=== PATIENT | female | born 1970 | race Caucasian/White ===

== ENCOUNTER 2020-06-10 14:33 | Outpatient (CLI) | payer OTHER, SELFPAY ==
[2020-06-10 14:54] LABS: Hematocrit 40.4 % (35.0-49.0); Hemoglobin 13.1 g/dL (12.0-15.0); Mean Corpuscular HGB Conc 32.4 g/dL (32.0-36.0); Mean Corpuscular Hemoglobin 29.2 pg (27.0-31.0); Mean Platelet Volume 8.4 fl (9.2-11.8); Platelet Count Result 282 K/mm3 (150-420); Red Blood Count 4.49 M/mm3 (4.20-5.40); Red Cell Distribution Width 13.6 % (11.6-14.4); White Blood Count 7.4 K/mm3 (4.8-10.8)
[2020-06-10 15:19] LABS: Alanine Aminotransferase 57 U/L (14-59); Albumin Level 4.2 g/dL (3.4-5.0); Alkaline Phosphatase 67 U/L (46-116); Anion Gap 10 mmol/L (8-16); Aspartate Amino Transferase 27 U/L (15-37); Bilirubin,Total 0.4 mg/dL (0.00-1.00); Blood Urea Nitrogen 12 mg/dL (7-18); Calcium 9.8 mg/dL (8.5-10.1); Carbon Dioxide 28 mmol/L (21-32); Chloride 103 mmol/L (98-108); Cholesterol 209 mg/dL (0-200); Estimated Glomerular Filt Rate > 60; Glucose 99 mg/dL (70-99); HDL Direct 65 mg/dL (40-60); LDL Cholesterol Calculated 119 mg/dL (<130); Osmolality Calculated 291 mOsm/kg (285-295); Sodium 141 mmol/L (136-145); Total Protein 7.4 g/dL (6.4-8.2); Triglycerides 127 mg/dL (0-150)
== END 2020-06-10 14:34 | disposition home or self-care (01) ==
LOC: CHSLAB 14:37
PROVIDERS: PCP Family Medicine; Visit Provider Family Medicine
DX: I10 Essential (primary) hypertension (principal)
CPT/HCPCS: 36415; 80053; 80061; 85027

== ENCOUNTER 2022-01-01 11:21 | Outpatient (CLI) | payer OTHER, SELFPAY ==
[2022-01-01 11:35] LABS: Mean Corpuscular HGB Conc 32.5 g/dL (32.0-36.0); Mean Corpuscular Hemoglobin 29.2 pg (27.0-31.0); Mean Corpuscular Volume 89.9 fL (78.0-102.0); Mean Platelet Volume 8.4 fl (9.2-11.8); Platelet Count Result 280 K/mm3 (150-420); Red Blood Count 4.45 M/mm3 (4.20-5.40); White Blood Count 6.8 K/mm3 (4.8-10.8)
[2022-01-01 12:02] LABS: Alanine Aminotransferase 33 U/L (14-59); Albumin Level 3.8 g/dL (3.4-5.0); Alkaline Phosphatase 66 U/L (46-116); Anion Gap 7 mmol/L (8-16); Aspartate Amino Transferase 19 U/L (15-37); Bilirubin,Total 0.4 mg/dL (0.00-1.00); Blood Urea Nitrogen 11 mg/dL (7-18); Calcium 9.3 mg/dL (8.5-10.1); Carbon Dioxide 30 mmol/L (21-32); Chloride 102 mmol/L (98-108); Cholesterol 199 mg/dL (0-200); Estimated Glomerular Filt Rate > 60; Glucose 100 mg/dL (70-99); HDL Direct 66 mg/dL (40-60); LDL Cholesterol Calculated 114 mg/dL (<130); Osmolality Calculated 287 mOsm/kg (285-295); Potassium 3.8 mmol/L (3.5-5.1); Sodium 139 mmol/L (136-145); Total Protein 7.2 g/dL (6.4-8.2); Triglycerides 97 mg/dL (0-150)
[2022-01-01 12:10] LABS: Thyroid Stimulating Hormone Reflex 2.32 u/IU/mL (0.36-3.74)
== END 2022-01-01 11:22 | disposition home or self-care (01) ==
LOC: CHSLAB 11:26
PROVIDERS: PCP Family Medicine; Visit Provider Family Medicine
DX: E11.9 Type 2 diabetes mellitus without complications (principal); I10 Essential (primary) hypertension
CPT/HCPCS: 36415; 80053; 80061; 84443; 85027

== ENCOUNTER 2023-02-12 09:51 | Outpatient (CLI) | payer OTHER, SELFPAY ==
[2023-02-12 10:11] LABS: Basophils Absolute Auto 0.07 K/mm3 (0.00-0.10); Eosinophils Absolute Auto 0.19 K/mm3 (0.02-0.50); Eosinophils Percent Auto 2.6 % (1.0-6.0); Hematocrit 40.3 % (35.0-49.0); Immature Granulocyte Absolute 0.02 K/mm3 (0.00-0.00); Immature Granulocyte Percent A 0.3 % (0.0-0.0); Lymphocytes Absolute Auto 1.59 K/mm3 (1.10-4.50); Lymphocytes Percent Auto 21.7 % (18.0-42.0); Mean Corpuscular HGB Conc 32.3 g/dL (32.0-36.0); Mean Platelet Volume 8.4 fl (9.2-11.8); Monocytes Absolute Auto 0.49 K/mm3 (0.10-0.90); Monocytes Percent Auto 6.7 % (2.0-11.0); Neutrophils Percent Auto 67.7 % (50.0-70.0); Platelet Count Result 295 K/mm3 (150-420); Red Blood Count 4.48 M/mm3 (4.20-5.40); Red Cell Distribution Width 13.5 % (11.6-14.4); White Blood Count 7.3 K/mm3 (4.8-10.8)
[2023-02-12 10:35] LABS: Alanine Aminotransferase 21 U/L (14-59); Albumin Level 3.8 g/dL (3.4-5.0); Alkaline Phosphatase 69 U/L (46-116); Anion Gap 9 mmol/L (8-16); Aspartate Amino Transferase 18 U/L (15-37); Bilirubin,Total 0.4 mg/dL (0.00-1.00); Blood Urea Nitrogen 20 mg/dL (7-18); Calcium 9.4 mg/dL (8.5-10.1); Carbon Dioxide 30 mmol/L (21-32); Chloride 104 mmol/L (98-108); Cholesterol 188 mg/dL (0-200); Estimated Glomerular Filt Rate > 60; Glucose 106 mg/dL (70-99); HDL Direct 70 mg/dL (40-60); LDL Cholesterol Calculated 112 mg/dL (<130); Osmolality Calculated 298 mOsm/kg (285-295); Potassium 4.2 mmol/L (3.5-5.1); Sodium 143 mmol/L (136-145); Total Protein 6.8 g/dL (6.4-8.2); Triglycerides 32 mg/dL (0-150)
[2023-02-12 11:03] LABS: Thyroid Stimulating Hormone Reflex 2.34 u/IU/mL (0.36-3.74)
== END 2023-02-12 09:52 | disposition home or self-care (01) ==
LOC: CHSLAB 09:53
PROVIDERS: PCP Family Medicine; Visit Provider Family Medicine
DX: E11.9 Type 2 diabetes mellitus without complications (principal); I10 Essential (primary) hypertension
CPT/HCPCS: 36415; 80053; 80061; 84443; 85025

== ENCOUNTER 2024-02-23 11:12 | Outpatient (CLI) | payer OTHER, SELFPAY ==
[2024-02-23 11:24] LABS: Basophils Absolute Auto 0.06 K/mm3 (0.00-0.10); Basophils Percent Auto 0.9 % (0.0-1.0); Eosinophils Absolute Auto 0.18 K/mm3 (0.02-0.50); Eosinophils Percent Auto 2.7 % (1.0-6.0); Hemoglobin 13.4 g/dL (12.0-15.0); Immature Granulocyte Absolute 0.03 K/mm3 (0.00-0.00); Immature Granulocyte Percent A 0.5 % (0.0-0.0); Lymphocytes Absolute Auto 2.02 K/mm3 (1.10-4.50); Lymphocytes Percent Auto 30.7 % (18.0-42.0); Mean Corpuscular HGB Conc 32.7 g/dL (32-36); Mean Corpuscular Hemoglobin 28.9 pg (27.0-31.0); Mean Corpuscular Volume 88.6 fL (78.0-102.0); Mean Platelet Volume 8.3 fl (9.2-11.8); Monocytes Percent Auto 6.1 % (2.0-11.0); Neutrophils Absolute Auto 3.88 K/mm3 (1.70-7.20); Neutrophils Percent Auto 59.1 % (50.0-70.0); Platelet Count Result 287 K/mm3 (150-420); Red Blood Count 4.63 M/mm3 (4.20-5.40); Red Cell Distribution Width 13.5 % (11.6-14.4); White Blood Count 6.6 K/mm3 (4.8-10.8)
[2024-02-23 12:17] LABS: Alanine Aminotransferase 30 U/L (14-59); Albumin Level 4.1 g/dL (3.4-5.0); Alkaline Phosphatase 70 U/L (46-116); Anion Gap 10 mmol/L (4-12); Aspartate Amino Transferase 23 U/L (15-37); Bilirubin,Total 0.4 mg/dL (0.00-1.00); Blood Urea Nitrogen 13 mg/dL (7-18); Calcium 9.7 mg/dL (8.5-10.1); Carbon Dioxide 30 mmol/L (21-32); Chloride 101 mmol/L (98-108); Cholesterol 219 mg/dL (0-200); Estimated Glomerular Filt Rate > 60; Glucose 104 mg/dL (70-99); HDL Direct 72 mg/dL (40-60); LDL Cholesterol Calculated 133 mg/dL (<130); Osmolality Calculated 292 mOsm/kg (285-295); Sodium 141 mmol/L (136-145); Triglycerides 72 mg/dL (0-150)
[2024-02-23 12:21] LABS: Thyroid Stimulating Hormone Reflex 1.81 u/IU/mL (0.36-3.74)
== END 2024-02-23 11:13 | disposition home or self-care (01) ==
LOC: CHSLAB 11:15
PROVIDERS: PCP Family Medicine; Visit Provider Family Medicine
DX: E03.9 Hypothyroidism, unspecified (principal); I10 Essential (primary) hypertension
CPT/HCPCS: 36415; 80053; 80061; 84443; 85025

== ENCOUNTER 2025-01-15 08:22 | Day surgery (SDC) | payer OTHER, SELFPAY ==
--- OUTSIDE RECORDS SUMMARY | 2025-01-15 08:33 | XMS_ITS ---
Author Organization Unknown Medications Medication Instructions Effective Dates (start - sto p) Status lisinopril 20 MG Oral Tablet [id number] 0:00:00Z - Completed lisinopril 20 MG Oral Tablet [id number] 0:00:00Z - Completed lisinopril 20 MG Oral Tablet [id number] 0:00:00Z - Completed ciclopirox 80 MG/ML Topical Solution - Completed lisinopril 20 MG Oral Tablet [id number] 0:00:00Z - Completed ciclopirox 80 MG/ML Topical Solution - Completed clobetasol propionate 0.0005 MG/MG Topical Ointment - Completed fluoxetine 10 MG Oral Capsule 2023-08-04 00:00:00Z - Completed lisinopril 20 MG Oral Tablet [id number] 0:00:00Z - Completed fluoxetine 10 MG Oral Capsule 2023-02-08 00:00:00Z - Completed fluoxetine 10 MG Oral Capsule 2023-05-10 00:00:00Z - Completed Patient Care team information Name Category Status Period Participants - - Proposed period not known -
--- OUTSIDE RECORDS SUMMARY | 2025-01-15 08:33 | XMS_ITS | Data Portability ---
Author Organization [facility], [address] [facility] ([place]) Address [address] [address] Care Team Providers Care Sail Cutter Name Role Phone ARABELLA HANLEY Milk Hauler BIBIANA YA Milk Hauler GIORGIO PITTMAN Primary Care Provider Assessment Encounter Date Assessment Date Assessment LastModified by Organization Details LastModified Time 11/16/2024 11/16/2024 Will have pt RTC when she is due for annual or sooner if any issues. All of her questions were answered. [email or web address] Not available 11/23/2024 20:51:21 Plan of Treatment Reminders Order Date Submit Date Provider Last Modified By Organization Details Last Modified Time Details Appointments Imagi ng 5.PRO 2025 10:15A M Radiology Not available Not available Not available Ashly Gagnon Woman Visit 15.ES T 2025 10:45A M Arabella Hanley Not available Not available Not available Lab wet mount , vagin al 2024 025 [email or web address] [facility], [address] [place] [address], [id number], 11/16/2024 12:48:37 urina lysis , compl ete 2024 025 ARMAAN [facility], [facility] [place] [address], [id number], 11/16/2024 17:22:10 cultu re + sensi tivit y, urine 2024 025 ARMAAN [facility], [facility] [place] [address], [id number], 11/17/2024 16:26:36 TSH, serum or plasm a 2024 025 ARMAAN [facility], [facility] [place] [address], [id number], 10/31/2024 17:37:41 CMP, serum or plasm a 2024 025 ARMAAN [facility], [address] [place] [address], [id number], 10/31/2024 18:18:54 Pap test, slide (s), cervi vero 2023 024 twindell [facility], [address] [place] [address], [id number], 12/27/2023 13:57:27 Referral None recor ded. Procedures None recor ded. Surgeries None recor ded. Imaging MAMMO , omkar catalan al, bilat eral 2024 025 [facility], [address] [place] [address], [id number], 10/31/2024 13:46:41 MAMMO , omkar catalan al, bilat eral 2023 025 ARMAAN [facility], [address] [place] [address], [id number], 10/31/2024 11:04:38 Medication Orders Myrbe triq 25 mg table t,ext ended relea se 2024 025 leonides [facility], [address] [place], [address], 10/31/2024 17:00:27 Patient TargetsNo targets recorded. Patient Instructions Encounter Date Encounter Id Patient Instructions Last Modified By Organization Details Last Modified Time 10/29/2023 [id number] Pedro appears to be doing well from a gynecology standpoint at this time. A pap was collected today. She will be notified with results once available. An order for a screening mammogram was provided today. Results from her bone density and mammogram which were both completed today were reviewed with her in office. We will plan to repeat her bone density at age 63 unless additional risk factors develop in the meantime. We will plan to see her back in 1 year for annual exam and as needed in the meantime. She will contact the office with questions and concerns in the interim. [email or web address] Not available 10/29/2023 15:49:20 10/31/2024 [id number] For further evaluation of the spotting she had a couple of weeks ago, Pedro will return to the office for ultrasound. For her weight gain a TSH was ordered. A metabolic panel was also ordered for evaluation of kidney function prior to starting a medication for overactive bladder. A low dose of Myrbetriq was sent to her pharmacy. We can follow up on this when she returns for pelvic ultrasound. The role and potential benefit of pelvic floor physical therapy was also reviewed. If she decides that she would like to try this, Pedro was encouraged to let us know and we can look for a location closer to where she lives. We discussed that the overactive bladder medications may have a positive impact on her menopausal symptoms. We also reviewed OTC and prescription options for management. Due to her history of DVT, she is not a candidate for estrogen. She does take a low dose of fluoxetine and we discussed that we may be able to increase it. However, it may negatively impact her libido. Veozah, clonidine, and gabapentin were also discussed. I would prefer not to use gabapentin due to the need for mutiple daily doses and threat of weight gain. She plans to start with OTC options and will let us know if she would like to consider any of the prescription options discussed today. An order for a screening mammogram was placed today for next year. We will plan to see her back in 1 year for an annual exam and sooner for ultrasound. She will contact the office with questions and concerns in the interim. [email or web address] Not available 11/01/2024 11:35:37 11/16/2024 [id number] Pt was counseled about her TVUS. Her endometrial lining is very thin. Due to this, did not recommend performing endometrial biopsy at this time. She reports having a small amount of spotting, but denies any significant bleeding like a period. Recommended checking for any vaginal infections, which could cause spotting. Also recommended checking for a UTI. Pt was counseled to monitor for any signs of repetitive heavy bleeding. If this were to occur, would recommend thorough evaluation with HSC/D&C. [email or web address] Not available 11/23/2024 20:51:51 Reason for Referral None Reported. Results Created Date Observation Date Name Description Value Unit Range Abnormal Flag Note LastModifiedBy Organization Detail LastModifiedTime 11/01/1910/31/2024 TSH, serum or plasm a TSH; reflex to free T4 Not Available [facility] [address] [place] [address], [id number], 10/31/2024 17:37:41 11/01/1910/31/2024 TSH, serum or plasm a TSH3 1.741 uIU/m L .340-5 .600 Not Available [facility] [address] [place] [address], 6[address], 10/31/2024 17:37:41 11/01/1910/31/2024 CMP, serum or plasm a comp. met. panel Not Available [facility] [address] [place] [address], 522[address], 10/31/2024 18:18:54 11/01/1910/31/2024 CMP, serum or plasm a sodium 141 mmol/ L 136-14 6 Not Available [facility] [address] [place] [address], 04[address], 10/31/2024 18:18:54 11/01/1910/31/2024 CMP, serum or plasm a potassium 4.4 mmol/ L 3.5-5. 1 Not Available [facility] [address] [place] [address], [id number], 10/31/2024 18:18:54 11/01/19 25 10/31/2024 CMP, serum or plasm a chloride 105 mmol/ L 98-110 Not Available [facility] [address] [place] [address], 080[address], 10/31/2024 18:18:54 11/01/19 25 10/31/2024 CMP, serum or plasm a CO2 28 mEq/L 20-32 Not Available [facility] [address] [place] [address], 20977, 10/31/2024 18:18:54 11/01/1910/31/2024 CMP, serum or plasm a anion gap 12 mmol/ L 10-22 Not Available [facility] [address] [place] [address], 640[address], 10/31/2024 18:18:54 11/01/1910/31/2024 CMP, serum or plasm a glucose 103 mg/dL 70-100 high Not Available [facility] [address] [place] [address], 21594, 10/31/2024 18:18:54 11/01/1910/31/2024 CMP, serum or plasm a calcium 9.6 mg/dL 8.4-10 .4 Not Available [facility] [address] [place] [address], 325[address], 10/31/2024 18:18:54 11/01/1910/31/2024 CMP, serum or plasm a total protein 6.7 g/dL 6.4-8. 3 Not Available [facility] [address] [place] [address], 86323, 10/31/2024 18:18:54 11/01/1910/31/2024 CMP, serum or plasm a albumin 4.6 g/dL 3.5-5. 3 Not Available [facility] [address] [place] [address], 40283, 10/31/2024 18:18:54 11/01/19 25 10/31/2024 CMP, serum or plasm a ALP 68 U/L 44 - 127 Not Available [facility] [address] [place] [address], 39347, 10/31/2024 18:18:54 11/01/19 25 10/31/2024 CMP, serum or plasm a AST (SGOT) 24 U/L 10-40 Not Available [facility] [address] [place] [address], 35267, 10/31/2024 18:18:54 11/01/19 25 10/31/2024 CMP, serum or plasm a total bilirubin 0.4 mg/dL 0.2-1. 2 Not Available [facility] - [facility] [address] [place] [address], 62178, 10/31/2024 18:18:54 11/01/19 25 10/31/2024 CMP, serum or plasm a ALT (SGPT) 20 U/L 8-35 Not Available [facility] [address] [place] [address], 31657, 10/31/2024 18:18:54 11/01/1910/31/2024 CMP, serum or plasm a BUN 12 mg/dL 7-21 Not Available [facility] [address] [place] [address], 76341, 10/31/2024 18:18:54 11/01/1910/31/2024 CMP, serum or plasm a creatinine 0.9 mg/dL 0.7-1. 3 Not Available [facility] [address] [place] [address], 89755, 10/31/2024 18:18:54 11/01/1910/31/2024 CMP, serum or plasm a CKD-epi GFR 75 eGFR was calcu lated using the 2020 CKD-E PI equat ion. (Agricultural Lender bere Kidne y Disea se has an eGFR less than 60 mL/mi n/1.7 3mm for a perio d of three month s or more. ) This calcu latio n has not been valid ated for patie nt ages <18 or >90 years old. Not Available [facility] [address] [place] [address], 30843, 10/31/2024 18:18:54 11/17/19 25 11/16/2024 wet mount , vagin al wet prep Not Available [facility] [address] [place] [address], 48003, 11/16/2024 11:25:07 11/17/19 25 11/16/2024 wet mount , vagin al yeast NONE SEEN none seen Not Available [facility] [address] [place] [address], 76140, 11/16/2024 11:25:07 11/17/19 25 11/16/2024 wet mount , vagin al WBC MODERA TE none seen abnormal Not Available [facility] [address] [place] [address], 42570, 11/16/2024 11:25:07 11/17/19 25 11/16/2024 wet mount , vagin al clue cells POSITI VE negati ve abnormal Clue Cell Inter preta tion: Posit elijah Resul t = >20% Clue Cells Seen Negat elijah Resul t = <20% Clue Cells Seen Not Available [facility] [address] [place] [address], 52092, 11/16/2024 11:25:07 11/17/19 25 11/16/2024 wet mount , vagin al trichomonas NONE SEEN none seen Not Available [facility] [address] [place] [address], 83889, 11/16/2024 11:25:07 11/17/19 25 11/16/2024 wet mount , vagin al source VAG Not Available [facility] [address] [place] [address], 14378, 11/16/2024 11:25:07 11/17/19 25 11/16/2024 hemog lobin A1c + avera ge gluco se, QN, blood hemoglobin A1C Not Available [facility] [address] [place] [address], 65585, 11/16/2024 15:33:24 11/17/19 25 11/16/2024 hemog lobin A1c + avera ge gluco se, QN, blood HGB A1C 6.0 %_A1C 4.3 - 5.6 high Not Available [facility] [address] [place] [address], 88730, 11/16/2024 15:33:24 11/17/19 25 11/16/2024 hemog lobin A1c + avera ge gluco se, QN, blood estimated average glucose 126 mg/dL Not Available [facility] [address] [place] [address], 70929, 11/16/2024 15:33:24 11/17/19 25 11/16/2024 urina lysis , compl ete urinalysis, complete LOW LEVEL S OF HEMOG LOBIN IN ABSEN CE OF HEMAT URIA MAY NOT BE CLINI GALO SIGNI RONNIEAN T. Not Available [facility] [address] [place] [address], 09601, 11/16/2024 17:22:10 11/17/19 25 11/16/2024 urina lysis , compl ete color YELLOW Not Available [facility] [address] [place] [address], 15423, 11/16/2024 17:22:10 11/17/19 25 11/16/2024 urina lysis , compl ete clarity CLEAR Not Available [facility] [address] [place] [address], 86904, 11/16/2024 17:22:10 11/17/19 25 11/16/2024 urina lysis , compl ete pH 6.5 5.0-7. 5 Not Available [facility] [address] [place] [address], 68585, 11/16/2024 17:22:10 11/17/19 25 11/16/2024 urina lysis , compl ete specific gravity 1.009 1.000- 1.030 Not Available [facility] [address] [place] [address], 58500, 11/16/2024 17:22:10 11/17/19 25 11/16/2024 urina lysis , compl ete blood NEGATI VE negati ve Not Available [facility] [address] [place] [address], 56578, 11/16/2024 17:22:10 11/17/19 25 11/16/2024 urina lysis , compl ete bilirubin NEGATI VE negati ve Not Available [facility] [address] [place] [address], 07293, 11/16/2024 17:22:10 11/17/19 25 11/16/2024 urina lysis , compl ete urobilinogen 0.2 0.2-1. 0 Not Available [facility] [address] [place] [address], 66625, 11/16/2024 17:22:10 11/17/19 25 11/16/2024 urina lysis , compl ete ketone NEGATI VE negati ve Not Available [facility] [address] [place] [address], 19013, 11/16/2024 17:22:10 11/17/19 25 11/16/2024 urina lysis , compl ete glucose NEGATI VE negati ve Not Available [facility] [address] [place] [address], 03102, 11/16/2024 17:22:10 11/17/19 25 11/16/2024 urina lysis , compl ete protein NEGATI VE negati ve Not Available [facility] [address] [place] [address], 12361, 11/16/2024 17:22:10 11/17/19 25 11/16/2024 urina lysis , compl ete nitrite NEGATI VE negati ve Not Available [facility] [address] [place] [address], 27635, 11/16/2024 17:22:10 11/17/19 25 11/16/2024 urina lysis , compl ete leukocytes 1+ negati ve abnormal Not Available [facility] [address] [place] [address], 75673, 11/16/2024 17:22:10 11/17/19 25 11/16/2024 urina lysis , compl ete review * Micro scopi c resul ts revie wed by [facility]. Not Available [facility] [address] [place] [address], 77311, 11/16/2024 17:22:10 11/17/19 25 11/16/2024 urina lysis , compl ete RBC. NONE SEEN Not Available [facility] [address] [place] [address], 32078, 11/16/2024 17:22:10 11/17/19 25 11/16/2024 urina lysis , compl ete WBC 0-5 0-5/hp f Not Available [facility] [address] [place] [address], 47967, 11/16/2024 17:22:10 11/17/19 25 11/16/2024 urina lysis , compl ete squamous epithelial 0-2 0-10/h pf Not Available [facility] [address] [place] [address], 00533, 11/16/2024 17:22:10 11/17/19 25 11/16/2024 urina lysis , compl ete bacteria NONE SEEN none Not Available [facility] [address] [place] [address], 70493, 11/16/2024 17:22:10 11/17/19 25 11/16/2024 urina lysis , compl ete hyaline cast 0-2 0-2/lp f Not Available [facility] [address] [place] [address], 62805, 11/16/2024 17:22:10 11/17/19 25 11/18/2024 cultu re + sensi tivit y, urine urine culture and sens. MIKKI L URINE After overn ight incub ation 40,00 0 CFU/m l Mixed uroge nital barney , 3 or more colon y types indic ative of conta minat ion. No addit ional growt h after two night s incub ation . Not Available [facility] [address] [place] [address], 65599, 11/18/2024 10:04:27 11/17/19 25 11/17/2024 cultu re + sensi tivit y, urine urine culture and sens. PREL IM URINE After overn ight incub ation 40,00 0 CFU/m l Mixed uroge nital barney , 3 or more colon y types indic ative of conta minat ion. Not Available [facility] [address] [place] [address], 30365, 11/17/2024 16:26:36 10/29/19 24 10/29/[address] [address] Teleph one [phone] Name: PEDRO BARRAZA [id number] am Date: 2023 Age: 53Phys ician: OSTERM KWESI, LICENSED CHEMICAL SPRAY TECHNICIAN, LINDSE Y : 1969Ex aminat ion: BONE DENSIT Y EXAMIN ATION: BONE DENSIT Y PATIEN T PROVID ED HISTOR Y: Postme nopaus al for screen ing. COMPAR MONE: None FINDIN GS: AP lumbar spine T-scor e is -0.6 Left Hip Total Hip T-scor e is 0.6 Femora l Neck T-scor e is 0.9 IMPRES MIN: Normal . Please see PACS for full comput er genera daksha report . Additi onal Clinic al Inform ation: Bone minera l densit y: Normal (T-sco re above or = -1.0) Low bone mass (T-sco re betwee n -1.0 and -2.5) replac es the previo usly used term osteop enia Osteop orosis (T-sco re = or below -2.5) Medica l evalua tion for second erwin causes of low bone minera l densit y may be approp riate. FRAX is a World Health Organi zation valida daksha fractu re risk assess ment tool that calcul ates a person 's 10 year probab ility of a major osteop orosis relate d fractu re and hip fractu re. Accord ing to the Nation al Osteop orosis Founda tion guidel flaquita postme darius al women and men age 50 or older with low bone mass and a 10 year probab ility of a major osteop orosis relate d fractu re = or greate r than 20% or a 10 year probab ility of a hip fractu re = or greate r than 3% should be consid ered for treatm ent. For furthe r inform ation, includ ing treatm ent recomm endati ons, please refer to the 2019 ISCD Offici al Positi ons (http: //www. iscd.o rg) and the [facility] radha's Guide to Preven tion and Treatm ent of Osteop orosis (http: //www. nof.or g/prof ession als/cl inical -guide lines) Electr onical ly signed in Dave cribe by: Brandon Sun MD on:10/28 1:14 PM cc: Page PAGE 1 of NUMJOLENE MELA 1 leonides [facility] [address] , [place], [address], 10/29/2023 15:27:46 10/29/19 24 10/29/2023 MAMMO katerine, digit al, bilat [place]l [facility] [address] [place] [address] Teleph one [phone] Name: PEDRO BARRAZA [id number] am Date: 2023 Age: 53Phys ician: OSTERM EIER, LICENSED CHEMICAL SPRAY TECHNICIAN, LINDSE Y : 1969Ex aminat ion: MAMM BILATE RAL DIGITA L SCREEN ING EXAM: MAMM BILATE RAL DIGITA L SCREEN ING, MAMM SCREEN ING TOMOSY NTHESI S ACCESS ION: [id number], [id number] EXAM DATE: 10/29/19 1:15 PM HISTOR Y: Screen ing. COMPAR MONE: Prior studie s dating back to 019. DENSIT Y: The breast s are hetero geneou sly dense, which may obscur e small masses . FINDIN GS: 2D digita l compos ite views as well as 3D digita l tomosy nthesi s views were perfor med. There are no suspic ious masses , calcif icatio ns, or areas of mechelle ectura l distor tion. IMPRES MIN: There is no mammog raphic eviden ce of malign tani. ASSESS MENT: BI-RAD S 1: Negati ve. RECOMM ENDATI ON: 1. Screen ing Mammog lisa Bilate ral in 1 year. COMMEN TS: The patien t will be entere d into an automa daksha remind er system for a screen ing mammog lisa in 1 year. The patien t has been or will be contac daksha with the result s of this exam. Electr onical ly signed in Dave cribe by: Brandon Sun MD on:10/28 1:26 PM cc: Page PAGE 1 of [address] 1 leonides [facility] [address] [place] [address], [id number], 10/29/2023 15:27:46 11/01/19 25 10/31/2024 MAMMO katerine, digit al, bilat eral [facility] [address] [place] [address] Teleph one Name: PEDRO BARRAZA [id number] am Date: 2024 Age: 54Phys ician: JELANI ALEXANDREER, LICENSED CHEMICAL SPRAY TECHNICIAN, LINDSE Y : 1969Ex aminat ion: MAMM BILATE RAL DIGITA L SCREEN ING EXAM: MAMM BILATE RAL DIGITA L SCREEN ING, MAMM SCREEN ING TOMOSY NTHESI S ACCESS ION: [id number], [id number] EXAM DATE: 11/01/19 10:00 AM HISTOR Y: Screen ing. COMPAR MONE: Prior studie s dating back to 10/02/19 21. DENSIT Y: The breast s are hetero geneou sly dense, which may obscur e small masses . FINDIN GS: 2D digita l compos ite views as well as 3D digita l tomosy nthesi s views were perfor med. There are no suspic ious masses , calcif icatio ns, or other findin gs within either breast . There has been no signif icant interv al change . IMPRES MIN: There is no mammog raphic eviden ce of malign tani. ASSESS MENT: BI-RAD S 1: Negati ve. RECOMM ENDATI ON: 1. Screen ing Mammog lisa bilate ral in 1 year COMMEN TS: The patien t will be entere d into an automa daksha remind er system for a screen ing mammog lisa in 1 year. The patien t has been or will be contac daksha with the result s of this exam. Electr onical ly signed in Dave cribe by: MICHELLE SRIVASTAVA MD on:10/31 10:01 AM cc: Page PAGE 1 of NUMPAG ES 1 [email or web address] [facility] [address], [place], [address], 10/31/2024 13:35:25 11/18/19 25 11/16/2024 US, trans vagin [facility] [address] [address] Teleph one [phone] Name: Pedro Barraza [id number] Exam Date: 2024 Age: 54 Physic radha: Arsalan Monroy : 1969 Examin ation: US PELVIC NON-OB TRANSV AGINAL INDICA TION: 54-yea r-old female , postme nopaus al bleedi ng Transv aginal images of the pelvis are obtain ed today. The uterus is in the anteve rted positi on, measur ing 6.51 x 3.95 x 2.38 cm. The endome trial thickn ess is 1.18 mm. The right ovary measur es 2.64 x 2.21 x 2.05 cm. There is a simple appear ing cyst in the right ovary that measur es 2.46 x 1.91 x 1.94 cm. Blood flow seen to the right ovary. The left ovary was not visual ized. The cul-de -sac contai ns no free fluid. IMPRES MIN: 2.46 simple cyst in the right ovary, otherw ise normal transv aginal ultras ound Electr onical ly signed in Dvae cribe by: Arsalan mendoza MD on:10/27 4:21 PM cc: Page PAGE 1 of [facility] 1 INTERFACE [facility] [place] [address], [address], 11/17/2024 17:24:52 Result Notes Documentation Provider Name and Address Organization Details Recorded Time Mammo, Screening, Digital, Bilateral : [address] [address] Name: PEDRO NAGEL Date: 10/29/2023 Age: 53Physician: JAYLENE HANLEY LINDSEY : 1970Examination: MAMM BILATERAL DIGITAL SCREENING EXAM: MAMM BILATERAL DIGITAL SCREENING, MAMM SCREENING TOMOSYNTHESIS [id number] EXAM DATE: 10/29/2023 1:15 PM HISTORY: Screening. COMPARISON: Prior studies dating back to 10/05/2018. DENSITY: The breasts are heterogeneously dense, which may obscure small masses. FINDINGS: 2D digital composite views as well as 3D digital tomosynthesis views were performed. There are no suspicious masses, calcifications, or areas of architectural distortion. IMPRESSION: There is no mammographic evidence of malignancy. ASSESSMENT: BI-RADS 1: Negative. RECOMMENDATION: 1. Screening Mammogram Bilateral in 1 year. COMMENTS: The patient will be entered into an automated reminder system for a screening mammogram in 1 year. The patient has been or will be contacted with the results of this exam. Electronically signed in [employer] by: Daryn Sun MD on:10/29/2023 1:26 PM cc: Page PAGE 1 of NUMCallMD 1 Arabella Hanley, ENVIRONMENTAL ASSOCIATE, ALUMNI COORDINATOR [address], [phone], [facility] 10/29/2023 15:27:46 Mammo, Screening, Digital, Bilateral : [address] [address] Name: PEDRO NAGEL Date: 10/31/2024 Age: 54Physician: JAYLENE HANLEY, ARABELLA : 1970Examination: MAMM BILATERAL DIGITAL SCREENING EXAM: MAMM BILATERAL DIGITAL SCREENING, MAMM SCREENING TOMOSYNTHESIS [id number] EXAM DATE: 10/31/2024 10:00 AM HISTORY: Screening. COMPARISON: Prior studies dating back to 10/01/2020. DENSITY: The breasts are heterogeneously dense, which may obscure small masses. FINDINGS: 2D digital composite views as well as 3D digital tomosynthesis views were performed. There are no suspicious masses, calcifications, or other findings within either breast. There has been no significant interval change. IMPRESSION: There is no mammographic evidence of malignancy. ASSESSMENT: BI-RADS 1: Negative. RECOMMENDATION: 1. Screening Mammogram bilateral in 1 year COMMENTS: The patient will be entered into an automated reminder system for a screening mammogram in 1 year. The patient has been or will be contacted with the results of this exam. Electronically signed in [employer] by: MICHELLE HAQUE MD on:10/31/2024 10:01 AM cc: Page PAGE 1 of NUMCallMD 1 Arabella Hanley APRN, ALUMNI COORDINATOR [address] [place] [address], [phone], [facility] 10/31/2024 13:35:26 Problems Name Problem SNOMED Code Status Onset Date Resolution Date Notes Provider Name and Address Organization Details Recorded Time Menopausal flushing 132819789 Active [address] 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 4 15:20:16 Hypertensive disorder 70979704 Active [address] [facility] 4 15:20:47 Gynecologic examination Active [address] [facility] 4 19:18:22 Screening mammography Active [address] [facility] 4 19:18:32 Menopausal symptom [id number] Active [address] [facility] 5 12:04:39 Postmenopausal bleeding 81714475 Active [address] [facility] 5 16:59:21 Urgent desire to urinate 93536930 Active [address] [facility] 5 16:01:36 Glucose level above reference range 29394746 Active [address] [facility] 5 10:15:31 Bacterial vaginosis 613334012 Active [address] [facility] 5 13:07:58 Problem Notes None recorded. Procedures Surgical History Date Name Laterality Status Provider Name and Address Organization Details Recorded Time 6 pelvic sling completed [facility] 10/22/2023 19:14:54 Oral surgery procedure completed [facility] 10/22/2023 19:15:13 operative procedure on knee completed [facility] 10/22/2023 19:15:42 Imaging Results None recorded. Procedure Notes None recorded. Medical Equipment None Reported. Allergies No known drug allergies Medications Name Sig Start Date Stop Date Status Note LastModified by Organization Details LastModified Time lisinopri l 20 mg tablet Take 1 tablet every day by oral route. 2023 active Unsure last refill date not document ed in [employer] Not Available Not Available Not Available metronida zole 500 mg tablet Take 1 tablet twice a day by oral route for 7 days. 11/30 completed Not Available Not Available Not Available ciclopiro x 8 % topical solution active Not Available Not Available Not Available fluoxetin e 10 mg capsule Take 1 capsule every day by oral route. 2024 active Last refilled 10/27/19 23 Not Available Not Available Not Available Myrbetriq 25 mg tablet,ex tended release Take 1 tablet every day by oral route. 2024 active Not Available Not Available Not Avai lable Vitals Date Recorded Body height Body mass index (BMI) Body weight Systolic And Diastolic Provider Name and Address Organization Details Last Updated DateTime 10/29/2023 168.91 cm 35.4 kg/m2 100021.94 g 132/74 mm[Hg] [facility] 10/29/2023 14:39:30 Date Recorded Body height Body mass index (BMI) Body weight Systolic And Diastolic Provider Name and Address Organization Details Last Updated DateTime 10/31/2024 167.64 cm 36.6 kg/m2 117544.47 g 136/80 mm[Hg] [facility] 10/31/2024 11:17:43 Date Recorded Body height Respiratory rate Systolic And Diastolic Provider Name and Address Organization Details Last Updated DateTime 11/16/2024 167.64 cm 16 /min 146/84 mm[Hg] Xuan De León [facility] 11/16/2024 10:55:54 Social History Question Answer Notes LastModified by Organizat ion Details LastModified Time Tobacco Smoking Status Never Smoker Not Available Health Note 10/29/2024 20:13:21 Do You Have An Advance Directive? Yes [email or web address] Information not available 10/29/2024 What Is Your Level Of Caffeine Consumption? Moderate [email or web address] Information not available 10/29/2024 What Is Your Code Status? DNR [email or web address] Information not available 10/29/2024 How Many Times Per Week Do You Exercise? 3-4 Times Per Week [email or web address] Information not available 10/29/2024 What Was The Date Of Your Most Recent Tobacco Screening? 10/31/2024 [email or web address] Information not available 10/29/2024 What Is Your Relationship Status? [email or web address] Information not available 10/29/2024 Sex: Unknown Functional Status Question Answer Note LastModified by Organizat ion Details LastModified Time How many times per week do you consume alcohol? Less than 1 time per week [email or web address] Information not available 10/29/2024 Do you use any illicit or recreational drugs? No [email or web address] Information not available 10/29/2024 Do you or have you ever used any other forms of tobacco or nicotine? No [email or web address] Information not available 10/29/2024 What is your level of alcohol consumption? Occasional [email or web address] Information not available 10/29/2024 Are you currently employed? 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 Moderate [email or web address] Information not available 10/29/2024 Mental Status None recorded. Family History Relationship Description Onset Age of this Age Resolved Age Notes LastModified by Organization Details LastModified Time Brother Colonic adhesions twindell Not available 2023 19:08:52 Brother Polyp of colon twindell Not available 2023 19:11:35 Brother Asthma [email or web address] Not available 0 10/29/2024 20:13:20 Maternal Grandfather Malignant tumor of colon 40 unsure of detail s [email or web address] Not available 10/29/2023 15:08:04 Mother Polyp of colon twindell Not available 2023 19:11:35 Mother Hypertensive disorder twindell Not available 2023 19:12:08 Mother Multiple myeloma twindell Not available 2023 19:12:22 Mother Mitral valve prolapse twindell Not available 2023 19:12:51 Mother Pulmonary embolism twindell Not available 2023 19:13:03 Mother Asthma [email or web address] Not available 20:13:20 Mother Heart disease [email or web address] Not available 2024 20:13:20 Mother Disorder of thyroid gland [email or web address] Not available 2024 20:13:20 Father Dementia twindell Not available 10/22/2023 19:11:53 Father Parkinson's disease twindell Not available 2023 19:12:38 Paternal Grandmother Alzheimer's disease [email or web address] Not available 2024 20:13:20 Maternal Grandmother Diabetes mellitus [email or web address] Not available 2024 20:13:20 Notes:Patient saw genetics i n 2016, no testing needed Medical History Condition Response High Blood Pressure Y COPD N Depression N Anxiety Disorder N Arthritis N Cancer N Stroke N Fibromyalgia N Kidney Disease N Bleeding Disorder N Asthma N Seizures N Attention-deficit Hyperactivity Disorder N Thyroid Problems N Anemia N Diabetes N Hyperlipidemia N Heart Disease N Osteoporosis N Gynecological HistoryNo gynecological history recorded. Obstetrics History GPAL:G 3 P 2 0 0 2 Type Value Full Term 2 Living 2 Total 3 Past Encounters Encounter ID Performer Location Encounter Start Date Encounter Closed Date Diagnosis/Indication Diagnosis SNOMED-CT Code Diagnosis ICD10 Code Diagnosis Note [id number] Arabella Hanley APRN, K[facility]) [address] [place] [phone] 10/29/2023 14:19:13 10/29/2023 15:26:58 Screening mammography of bilateral breasts 8932478293 87574 Z12.31 Gynecologi c examination 58480124 Z01.419 [id number] Arabella Hanley APRN, ALUMNI COORDINATOR [facility] [place] [address] [facility] [address] [place] [address] 10/31/2024 10:59:50 10/31/2024 12:24:22 Breast neoplasm screening status 219297208 Z12.31 Menopausal symptom 85590 002 N95.1 Postmenopa usal bleeding 45851088 N95.0 Urgent lamont roshan to urinate 05576481 R39.15 Gynecologi c examination 44700404 Z01.419 [id number] Bibiana Ya MD [facility] [place] [address] [place] [address] 11/16/2024 10:00:18 11/16/2024 15:29:49 Postmenopausal bleeding 40876954 N95.0 Health Concerns Section Related Observation LastModified by Organization Detai ls LastModified Time None Recorded Concern Status LastModified by Organization Details LastModified Time None Recorded Advance Directives Directive Y: Payers Insurance Date Sequence Insurance Name Policy Number Policy Baca Covered Member ID Baca Member ID Guarantor Name 11/24/2024 2 [employer] - [facility] [employer] [facility] (POS) [id number] Calvin Hasquin [id number] Pedro Garcia Hasquin 11/03/2024 2 [employer] (POS) [id number] Calvin Hasquin [id number] Pedro Garcia Hasquin 11/24/2024 1 [facility] [id number] Pedro Jose Hasquin [id number] Pedro Garcia Hasdavid Notes Date Note Type Note Provider Name and Address Organization Details Recorded Time 10/29/2023 text/html Patient of Dr. Ya's here for annual gynecology exam. She is a . The patient denies pelvic pain, abnormal vaginal discharge, breast problems, urinary symptoms, vasomotor symptoms, mood changes and bowel problems. The patient does self breast exams, has adequate calcium intake and exercise occasionally or regularly. Contraception: vasectomyLMP: absent, menopausal. Denies any vaginal bleeding. The patient is currently sexually active. Denies pain with intercourse. The patient has had no changes in medical/surgical history since her last office visit. Last mammogram: today, h/o heterogenously dense tissueLast colonoscopy: 2019Las bone density: todayLast pap: performed by: result: 10/01/2020 negative, negative HPV. Arabella Hanley, NPHistory of Abnormal pap: ASCUS negative HPV 2013History of Gestational Diabetes: NoHistory of Gestational Hypertension: NoHereditary Breast and Ovarian cancer screen: negative 2022Hepatitis C: not completed due to ageGardasil: not completed Arabella Hanley APRN, ALUMNI COORDINATOR [address] [place] [address], [phone], [facility] 11/01/2023 16:16:41 10/31/2024 text/html Patient of Dr. Ya's here for an annual gynecology exam. She is a . Patient c/o increased weight gain despite daily exercise. C/O night sweats, irritability, and decrease sex drive. She has tried OTC Black Cohosh. She noticed brown spotting when wiping about 2 weeks ago and pelvic cramping. Last week she had pelvic heaviness, but no spotting. She had bladder sling in 2006 and has had an increase in urinary urgency and frequency. She feels like she urinates a normal amount and denies any pain or burning with urination. Pedro shares that she gets up twice at night to urinate. She states that her night sweats and irritability have started to become more bothersome for her over the past couple of months. She does have a history of a DVT after her knee surgery. The patient denies pelvic pain, abnormal vaginal discharge, breast problems and bowel problems. The patient does not smoke, does self breast exams, has adequate calcium intake and exercises regularly. Contraception: vasectomyLMP: absent, menopausal.The patient is currently sexually active. The patient has had no changes in medical/surgical history since her last office visit. Last mammogram: todayLast colonoscopy: 2020Last bone density: 10/29/2023 normalLast pap: performed by: result: 10/29/2023 negative, negative HPV. Arabella Hanley, NPHistory of Abnormal pap: ASCUS negative HPV 2013History of Gestational Diabetes: NoHistory of Gestational Hypertension: NoHereditary Breast and Ovarian cancer screen: negative 2022Hepatitis C: not completed due to ageGardasil: not completed Arabella Hanley APRN, ALUMNI COORDINATOR [address] [place] [address], [phone], [facility] 11/02/2024 06:37:36 11/16/2024 text/html Pedro is a 54 year-old G3,P2 who presents today for a pelvic ultrasound to evaluate postmenopausal bleeding that occurred a few weeks ago. She has had two episodes over the last month. She disclosed this information to Arabella Hanley NP at her annual exam on 10/31/24. Her ultrasound in the office today showed an anteverted uterus. Endometrium appears thin measuring 1.18 mm. Left ovary is not visualized. Right ovary has a simple cyst measuring 2.46 x 1.91 x 1.94 cm. There is blood flow noted to the right ovary. There is no free fluid or adnexal masses seen. Bibiana Ya MD [address] [place] [address], [phone], [place] [facility] 11/23/2024 20:52:26 OBGyn Episode No OBEpisode recorded.
--- OUTSIDE RECORDS SUMMARY | 2025-01-15 08:33 | XMS_ITS | Patient Health Record ---
Author Organization [facility] Address [address] [place], [place] [id number] Care Team Providers Care Automobile Leasing Supervisor Name Role Phone TAMEKA GIFFORD Unavailable [phone] Matt Crisostomo Unavailable Unavailable Allergies No Known Allergies Reason For Referral No Information Medications Medication SIG (Take, Route, Frequency, Duration) Notes Start Date End Date Status Fluoxetine Active terbinafine 250 MG Oral Tablet ORAL terbinafine 250 MG Oral TabletOriginal Medicationterbinafine 250 MG Oral Tablet *Reorder from [employer] for eRx and Interaction Alerts* 01/17/2019 Active Lisinopril Active Social History Tobacco Use: Social History Observation Description Date Details (start date - stop date) Never Smoker NA - NA Tobacco Use/Smoking Question Answer Notes Tobacco use: nonsmoker Plan Of Treatment No Information Insurance Providers Payer Name Payer Address Payer Phone Subscriber Number Group Number Insured Name Patient Relationship to Insured Coverage Start Date Coverage End Date [facility] [address] [address] [place] [address] [id number] PEDRO NAGEL Self - patient is the insured Aet [address] [place] [phone] [id number] BAILEY NAGEL Spouse - patient is the spouse of the insured
--- OUTSIDE RECORDS SUMMARY | 2025-01-15 08:33 | XMS_ITS | Clinical Summary ---
Author Organization [facility] Address [address] [place] [address] Care Team Providers Care Weigh Machine Operator Name Role Phone JamaalJess gonzalezselina CASAS Primary Care Provider [phone] Social History Tobacco Use Types Packs/Day Years Used Date Smoking Tobacco: Never Assessed Comments Unknown Sex and Gender Information Value Date Recorded Sex Assigned at Not on file Legal Sex Female 9:30 PM CDT Gender Identity Not on file Sexual Orientation Not on file Last Filed Vital Signs Vital Sign Reading Time Taken Comments Blood Pressure 124/76 05/31/2017 3:56 PM MILLING OPERATOR Pulse 62 05/31/2017 3:56 PM MILLING OPERATOR Temperature - - Respiratory Rate - - Oxygen Saturation - - Inhaled Oxygen Concentration - - Weight 98.4 kg (217 lb) 05/31/2017 3:56 PM MILLING OPERATOR Height 167.6 cm (5' 6) 05/31/2017 3:56 PM MILLING OPERATOR Body Mass Index 35.02 05/31/2017 3:56 PM MILLING OPERATOR Plan of Treatment Health Maintenance Due Date Last Done Comments Cervical Cancer Screening Pa p Smear (Age 30 to 64) Every 3 Years 1968 Colorectal Cancer Screening Colonoscopy (10 Years) 1968 Annual Physical 02/02/1971 Hepatitis C 02/02/1986 DTaP, Tdap and Td Vaccines ( 1 - Tdap) 02/02/1987 Hepatitis B Vaccines (1 of 3 - 19+ 3-dose series) 02/02/1987 Cervical Cancer Screening Pa p with HPV Testing (Age 30 to 64) Every 5 Years 02/02/1998 Cervical Cancer Screening with HPV 02/02/1998 Mammogram Screening 2008 Pneumococcal Vaccine: 50+ Ye ars (1 of 1 - PCV) 02/02/2018 Zoster Vaccines (1 of 2) 02/02/2018 COVID-19 Vaccine (1 - 2023-2 5 season) 2024 Meningococcal B Vaccine Aged Out No l onger eligible based on patient's age to complete this topic Meningococcal Vaccine Aged Out No tang denver eligible based on patient's age to complete this topic RSV Immunizations Under 20 Months Aged Out No longer eligible based on patient's age to complete this topic Insurance [facility] Care Teams Weigh Machine Operator Relationship Specialty Start Date End Date Matt Crisostomo DO [address] [place] [address] PCP - General FAMILY PRACTICE 06/10/22
[2025-01-15 08:45] VITALS: BP 124/75; PULSE 54; RESP 16; TEMP 36.4; O2SAT 100
[2025-01-15] MEDS: LACTATED RINGERS 1,000 ML 150 ML IV CONT (08:53)
--- NOTE | 2025-01-15 08:56 | P.PNAN_ITS ---
Anes - Initial Pre Proc Eval Procedure: Operation Date: 01/15/25 09:30 Proposed Procedures p Screening Colonoscopy - Carroll Bourne DO Date/Time: 01/15/25 08:56 Surgeon: Carroll Bourne DO Pre Op Diagnosis: Neoplasm Screening Patient Data Age: 54 Gender: F Height: 1.68 m Weight: 94.05 kg Last Vital Signs Temp 97.5 F L 01/15/25 08:45 Pulse 54 L 01/15/25 08:45 Resp 16 01/15/25 08:45 BP 124/75 01/15/25 08:45 Pulse Ox 100 01/15/25 08:45 O2 Del Method Room Air 01/15/25 08:45 Allergies Allergy/AdvReac Type Severity Reaction Status Date / Time No Known Allergies Allergy Verified 01/15/25 08:43 Home Medications ?Medication ?Instructions ?Recorded ?Confirmed ?Type fluoxetine 10 mg capsule 10 mg PO DAILY #90 caps 06/11/20 01/15/25 Rx lisinopril 20 mg tablet See Rx Instructions .Route 11/06/24 01/15/25 Rx .COMPLEX #90 tabs mirabegron 25 mg tablet,extended 25 mg PO DAILY 11/23/24 01/15/25 History release 24 hr (Myrbetriq) tirzepatide (weight loss) 5 mg/0.5 5 mg (0.5 mL) subcut WEEKLY #2 mL 12/20/24 01/15/25 Rx mL subcutaneous pen injector (Zepbound) ascorbate calcium (vitamin C) 1 tablet PO DIRECTED 01/05/25 01/15/25 History cholecalciferol (vitamin D3) 1 tablet PO DIRECTED 01/05/25 01/15/25 History Patient hx anesthesia problems: none Family hx anesthesia problems: none Results Review: All pre-operative results and documents have been reviewed as part of the pre- operative evaluation. [facility] Past Medical History Medical History REA (generalized anxiety disorder) Hypertension Surgical History Surgical History History of right knee surgery History of bladder surgery Social History Social History Smoking status: Never smoker Alcohol intake: current Do You Feel Safe in your Home?: Yes Lack of Transportation: No Lack of Food: Never True Current Housing: I Have Housing Concerned About Future Housing: No Difficulty Paying Gas/Electric Bills: No Difficulty Paying for Meds: No Currently Unemployed: No Living arrangements: with family Additional living arrangements comments: . 2 children. Occupation/Education: occupation Additional occupation/education comments: Employed at [email or web address] in [place] Gender identity (if verbalized by the patient): Female Anes - Eval Final PreProcedure Day of Procedure 01/15/25 08:56 Heart: regular rate and rhythm Lungs: clear to auscultation Airway: Mallampati scale class 1 Neurological: alert and oriented Last oral intake: >/= 8 hours ASA classification: II Anesthetic plan: proceed Anesthesia type and monitoring: monitored anesthesia care Results Review: All pre-operative results and documents have been reviewed as part of the pre- operative evaluation. Informed Consent: The patient's anesthetic plan and its attendant risks and benefits were discussed with the patient/family/POA. Questions were solicited and answers provided to the satisfaction of the patient/family/POA.
--- NOTE | 2025-01-15 09:16 | WPDANESPN ---
Anes - Prog Note Post-Op Date/Time: 01/15/25 09:16 Vital Signs: Last Vital Signs Temp 97.5 F L 01/15/25 08:45 Pulse 54 L 01/15/25 08:45 Resp 16 01/15/25 08:45 BP 124/75 01/15/25 08:45 Pulse Ox 100 01/15/25 08:45 O2 Del Method Room Air 01/15/25 08:45 Pain Score (VAS): no Patient Feedback: Patient satisfied with anesthetic care.
--- NOTE | 2025-01-15 09:29 | PM.IMHP ---
H&P: HPI History of Present Illness Date/Time: 01/15/25 09:29 Chief Complaint: history of colon polyps Narrative: this is a 54-year-old woman who presents for colonoscopy. Her last colonoscopy was 6 years ago and polyps were removed at that time. She has a family history of colon cancer in a maternal grandfather and also has a brother who had advanced polyps removed in the past. She denies any hematochezia or melena. Review of Systems Review of Systems: All systems reviewed & are unremarkable except as noted in HPI and below Constitutional: Constitutional: Denies chills, Denies fever(s), Denies headache(s) and Denies weight loss Eyes: Eyes: Denies change in vision ENT: Denies dizziness, Denies headache(s), Denies neck mass and Denies throat swelling Cardiovascular: Cardiovascular: Denies chest pain, Denies lightheadedness and Denies dyspnea Respiratory: Respiratory: Denies cough, Denies dyspnea and Denies wheezing Gastrointestinal: Gastrointestinal: Denies abdominal pain, Denies change in bowel habits, Denies nausea and Denies vomiting Genitourinary: Genitourinary: Denies hematuria and Denies dysuria Musculoskeletal: Musculoskeletal: Reports as per HPI Integumentary/Breasts: Skin/Breast: Reports as per HPI Neurologic: Denies dizziness and Denies headache(s) Allergic/Immunologic: Allergic/Immunologic: Denies throat swelling and Denies wheezing PMFSH Past Medical History Medical History REA (generalized anxiety disorder) Hypertension Surgical History Surgical History History of right knee surgery History of bladder surgery Social History Social History Smoking status: Never smoker Alcohol intake: current Do You Feel Safe in your Home?: Yes Lack of Transportation: No Lack of Food: Never True Current Housing: I Have Housing Concerned About Future Housing: No Difficulty Paying Gas/Electric Bills: No Difficulty Paying for Meds: No Currently Unemployed: No Living arrangements: with family Additional living arrangements comments: . 2 children. Occupation/Education: occupation Additional occupation/education comments: Employed at [employer] Gender identity (if verbalized by the patient): Female Meds Home Medications and Allergies Home Medications ?Medication ?Instructions ?Recorded ?Confirmed ?Type fluoxetine 10 mg capsule 10 mg PO DAILY #90 caps 06/11/20 01/15/25 Rx lisinopril 20 mg tablet See Rx Instructions .Route 11/06/24 01/15/25 Rx .COMPLEX #90 tabs mirabegron 25 mg tablet,extended 25 mg PO DAILY 11/23/24 01/15/25 History release 24 hr (Myrbetriq) tirzepatide (weight loss) 5 mg/0.5 5 mg (0.5 mL) subcut WEEKLY #2 mL 12/20/24 01/15/25 Rx mL subcutaneous pen injector (Zepbound) ascorbate calcium (vitamin C) 1 tablet PO DIRECTED 01/05/25 01/15/25 History cholecalciferol (vitamin D3) 1 tablet PO DIRECTED 01/05/25 01/15/25 History Allergies Allergy/AdvReac Type Severity Reaction Status Date / Time No Known Allergies Allergy Verified 01/15/25 08:43 Vital Signs Vital Signs - 24 hr 01/15/25 08:45 Temperature 97.5 F L Pulse Rate 54 L Respiratory Rate 16 Blood Pressure 124/75 Pulse Oximetry 100 Oxygen Delivery Room Air Exam Const: General: no acute distress and alert Orientation/consciousness: patient oriented x3 HENMT: Head: normocephalic and atraumatic Ears: hearing grossly normal bilaterally Face/Nose/Sinus: Normal nares present Mouth: Yes Normal oral and palatal mucosa present Eyes: Periorbital: periorbital findings normal Sclera: sclerae normal EOM: EOMs intact bilaterally Neck: Neck: normal visual inspection, no lymphadenopathy and trachea midline Chest: Chest palpation & inspection: normal inspection of the chest Resp: Effort & Inspection: normal respiratory effort Auscultation: clear to auscultation bilaterally Cardio: Jugular venous distension: no JVD Rate: regular rate Rhythm: regular rhythm Heart sounds: S1 normal heart sound present and S2 normal heart sound present Peripheral pulses: Peripheral pulses 2+ throughout GI: Inspection: normal to inspection GI Palp: Yes Soft to palpation, No Tenderness to palpation present (GI), No Guarding due to palpation present (GI) and No Rebound tenderness present Percussion: Yes normal to percussion Auscultation: normal bowel sounds : General: Yes no CVA tenderness Back/Spine/Pelvis: Back: no CVA tenderness Neuro: General: patient oriented x3, no focal motor deficits and CN's II-XI intact bilaterally Cognition (Neuro): normal cognition Speech: normal speech Motor exam (neuro): 5/5 motor strength present throughout Extrem: General: capillary refill normal and no clubbing, cyanosis or edema Assessment and Plan Assessment and plan (1) Screening for colorectal cancer: Code(s): Z12.11 - Encounter for screening for malignant neoplasm of colon; Z12.12 - Encounter for screening for malignant neoplasm of rectum Status: Acute Assessment and Plan: I have recommended colonoscopy. I have discussed the procedure, risks, benefits, and alternatives. Questions were answered. Patient is agreeable to proceed. (2) History of colon polyps: Code(s): Z86.0100 - Personal history of colon polyps, unspecified Status: Acute
[2025-01-15 10:06] VITALS: BP 105/70; PULSE 69; RESP 14; O2SAT 100
[2025-01-15 10:16] VITALS: BP 126/73; PULSE 58; RESP 15; O2SAT 100
[2025-01-15 10:26] VITALS: BP 137/75; PULSE 55; RESP 15; O2SAT 100
== END 2025-01-15 10:32 | disposition home or self-care (01) ==
PROVIDERS: PCP Family Medicine; Visit Provider Surgery
PROC: 0DJD8ZZ Inspection of Lower Intestinal Tract, Via Natural or Artificial Opening Endoscopic (ICD-10-PCS; CPT 45378; principal; 2025-01-15 09:30)
DX: Z12.11 Encounter for screening for malignant neoplasm of colon (principal); K64.8 Other hemorrhoids; Z86.0100 Personal history of colon polyps, unspecified; Z80.0 Family history of malignant neoplasm of digestive organs; Z83.719 Family history of colon polyps, unspecified
CPT/HCPCS: 45378